=== PATIENT | male | born 1950 | race Caucasian/White ===

== ENCOUNTER 2016-12-14 11:16 | Observation (INO) | payer MEDICARE, MEDICAID ==
[~2016-12-14] VITALS: Ht 167.6 cm; Wt 81.7 kg
[~2016-12-14 11:16] MED LIST: ASPIRIN 81MG TA81 MG PO; BLOOD PRESSURE MED; CLINDAMYCIN HC300 MG PO; INDERAL20 MG PO; LIPITOR10 MG PO; LIPITOR40 MG PO; LISINOPRIL/HCTZ1 TA3 PO; MELOXICAM15 MG PO; MELOXICAM7.5 MG PO; METFORMIN HYDR500 M1 PO; MIRALAX17 GM/PACK PO; NAPROXEN SODIU500 MG PO; NITROGLYCERIN0.4 M1 SL; PRAVASTATIN 40M40 MG PO; PROPRANOLOL HCL20 M1 PO; RA SENNA PLUS1 EACH PO; SIMVASTATIN10 MG PO; TAMSULOSIN HCL0.4 MG PO; WATER PILL; ZETIA10 MG PO; ZOLPIDEM 10MG T10 MG PO; [UNRECOGNIZED DRUG - REMARK]
[2016-12-14 12:08] VITALS: BP 151/84
[2016-12-14] MEDS ORDERED: ZETIA10 MG PO (12:47)
[2016-12-14 13:12] LABS: HEMOGLOBIN 13.6 g/dL (14.1-18.0); LYMPH # 1.7 K/mm3 (0.7-4.5); LYMPH % 18.1 % (10-50)
--- NOTE | 2016-12-14 13:49 | CONSULT NOTE ---
See Addendum Standard Demographics Patient Demo Date of Consultation: 12/14/16 Referring Provider: Bradley Fernandez MD Reason for Consultation: Chest pain, palpitations, dizziness, WEBBER PRIMARY DIAGNOSIS: CHEST PAIN Problem list Problem list: 1. HTN, treated for many years 2. Strong FH of ASHD in multiple family members including father and brother in their late 50s or early 60s. 3. Hyperlipidemia 4. Reflux History of present illness: History of present illness: 66-year-old white male with known history of hypertension and strong family history of coronary artery disease presented to Dr. Fernandez's office today for further evaluation of chest discomfort, dizziness and exertional shortness of breath. Symptoms have been intermittent but progressive over the last year to 2 years. The chest discomfort and dizziness are not always associated with activity. He does note palpitations at times which he associates with the dizziness. He had a particularly symptomatic episode of chest discomfort and dizziness today which prompted the visit to Dr. Fernandez's office and subsequent admission for further evaluation. Currently patient is symptom-free. Cardiology consult for further evaluation and treatment. Patient relates a previous stress test in the last 2 years without significant abnormality. Past Medical History: General: Hypertension Yes CVA No Seizures No TB No COPD No Asthma No Diabetes No Insulin Dependent No Insulin Pump No Angina Yes HI No Hyperlipidemia Yes Urinary No Cancer No Rheumatic H.D. No Ulcers No MRSA No GB Disease No Past Surgical HX: Previous Surgery?Y LEFT KNEE CYST REMOVED FROM [facility] Allergies Coded Allergies: No Known Allergies (03/07/16) Home medications: Active Scripts Nitroglycerin 0.4 MG SL [id number] PRN chest pain #30 TAB Prov: 03/13/16 Reported Medications ASPIRIN (Aspirin) 81 MG PO DAILY Lisinopril & Hctz (Lisinopril-Hctz 10-12.5 MG Tab) 1 TABLET PO DAILY Simvastatin 5 MG PO NIGHTLY #30 Sennosides/Docusate Sodium (Ra Senna Plus Tablet) 1 EACH PO DAILY #30 Ezetimibe (Zetia) 10 MG PO DAILY Current Medications: Current Medications Metoprolol Tartrate 50 MG Q12 PO (UNV) Acetaminophen 650 MG Q4HP PRN PO Aspirin 324 MG ONCE ONE PO (DC) Morphine Sulfate 2 MG Q10M PRN IV Nicotine 21 MG DAILYP PRN TD Temazepam 15 MG QHSP PRN PO Immunization HX DT/Tetanus 1-4 Years Flu 2015-FSN Pneumonia RECEIVED IN PAST TB Test in last year No Family history Family HX Family Hx Insignificant No Diabetes No CAD Yes Hypertension Yes Hyperlipidemia Yes Cancer No TB No Social Hx: Smoking HX Are you/the child exposed to second-hand smoke: No Alcohol Alcohol: No Hx of Drug Use Drug Use? No Patien't marital status is single Patient's support system is good Review of systems: Constitutional No: no symptoms reported. Respiratory see HPI, SOB with excertion. Cardiovascular see HPI, chest pain, palpitations Gastrointestinal/Abdominal No no symptoms reported Genitourinary No: no symptoms reported. Musculoskeletal muscle pain. No: no symptoms reported. Neurological No: no symptoms reported. Exam: Admission Vital Signs: 1ST Vital Signs Result Date Time Pulse Ox 98 12/14 1208 O2 Delivery ROOM AIR 12/14 1208 Temp 98.1 12/14 1208 Pulse 65 12/14 1208 Resp 20 12/14 1208 B/P 151/84 12/14 1208 Last Vital Signs: Vital Signs Result Date Time Pulse 65 12/14 1208 B/P 151/84 12/14 1208 Temp 98.1 12/14 1208 Resp 20 12/14 1208 Pulse Ox 98 12/14 1208 O2 Delivery ROOM AIR 12/14 1208 Exam General appearance: alert, awake, no acute distress Neck: no carotid bruit, no JVD Cardiovascular: regular rate & rhythm, no murmur Respiratory: clear to auscultation, good air movement ABD: soft, no tenderness Extremities: moves all, no peripheral edema Neuro: alert, intact, oriented, speech clear Laboratory data: Laboratory Tests 12/14/16 1245: Creatine Kinase 114, CK-MB (CK-2) Rel Index 0.9, CK and CKMB Interp 1.0, Troponin I < 0.02 12/14/16 1245: Sodium 139, Potassium 3.7, Chloride 101, Carbon Dioxide 30, BUN 20 H, Creatinine 1.5 H, Estimated Creat Clear 57, Estimated GFR (MDRD) 47, Glucose 107 H, Calcium 9.4, B-Natriuretic Peptide 53, Triglycerides 119, Cholesterol 158, LDL Cholesterol 90.2, VLDL Cholesterol 23.8, HDL Cholesterol 44.0, WBC 9.2, RBC 4.47 L, Hgb 13.6 L, Hct 41.7 L, MCV 93.3, RDW 14.1, Plt Count 197, MPV 8.5, Gran % 74.3, Gran # 6.8, Lymphocytes % 18.1, Monocytes % 5.3, Eosinophils % 1.8, Basophils % 0.5, Lymphocytes # 1.7, Monocytes # 0.5, Eosinophils # 0.2, Basophils # 0.1, PUBS MCHC 32.5, MCH 30.3 Plan: Assessment: 1. Chest pain, exertional shortness of breath and dizziness with history of abnormal CT of the chest showing dense calcification of the left anterior descending. Concern for unstable angina pectoris/ASHD in a patient with significant family history of coronary disease and hypertension. We'll obtain an echocardiogram today to evaluate LV size and function. Would plan for cardiac catheterization tomorrow morning. 2. Hypertension, well controlled 3. Hyperlipidemia with LDL 158. Will increase statin therapy. Continue Zetia therapy. Recommendations: Pt seen with Dr. LAZAR. See above. at 2611
--- NOTE | 2016-12-14 14:12 | RADIOLOGY REPORT PS360 ---
CHEST(2 VIEWS-NOT PORTABLE) HISTORY: chest pain COMPARISON: Multiple previous exams including 10/26/2016 FINDINGS: The cardiomediastinal silhouette and pulmonary vascularity are within normal limits. Ill-defined increased density is present in the left lung base overlying the sixth rib anteriorly. While this may be related to summation artifact, one cannot exclude the possibility of an area of infiltrate. This did not have a similar appearance on multiple previous exams of similar technique. The remaining lungs are clear. No acute bony anomalies. IMPRESSION: Possible patchy infiltrate in the left lung base. Recommend follow up to confirm resolution as a developing nodule could have a similar appearance.
--- NOTE | 2016-12-14 15:06 | PHARMACY CLINIC NOTE ---
Patient Demographics Patient Demographics Admission date: 12/14/16 Date: 12/14/16 Time: 1506 Allergies Coded Allergies: No Known Allergies (03/07/16) HEIGHT- FT: 5 IN: 6.00 K.555 VTE General Information Labs: Laboratory Tests 12/14 1245 Hematology Hgb (14.1 - 18.0 g/dL) 13.6 L Hct (42.0 - 52.0 %) 41.7 L Plt Count (142 - 424 K/mm3) 197 Disclaimer The following section includes nursing documentation that has been pulled in for pharmacy review. Patient's VTE score: 2 Patient's VTE Risk: VERY LOW RISK Clinical trial participant? No VTE prophylaxis [facility] 0371 VTE prophylaxis ordered? Yes Type of prophylaxis/treatment: CHICO at 1504
--- NOTE | 2016-12-14 15:06 | PHARMACY CLINIC NOTE ---
Patient Demographics Patient Demographics Admission date: 12/14/16 Date: 12/14/16 Time: 1506 Allergies Coded Allergies: No Known Allergies (03/07/16) HEIGHT- FT: 5 IN: 6.00 K.555 VTE General Information Labs: Laboratory Tests 12/14 1245 Hematology Hgb (14.1 - 18.0 g/dL) 13.6 L Hct (42.0 - 52.0 %) 41.7 L Plt Count (142 - 424 K/mm3) 197 Disclaimer The following section includes nursing documentation that has been pulled in for pharmacy review. Patient's VTE score: 2 Patient's VTE Risk: VERY LOW RISK Clinical trial participant? No VTE prophylaxis [facility] 0371 VTE prophylaxis ordered? Yes Type of prophylaxis/treatment: CHICO at 1500
[2016-12-14] MEDS ORDERED: ASPIRIN 81MG TA81 MG PO (15:31)
--- NOTE | 2016-12-14 17:10 | HISTORY AND PHYSICAL REPORT ---
Demographics: Admit date: 12/14/16 Chief complaint: Chest pain PRIMARY DIAGNOSIS: CHEST PAIN Allergies: Coded Allergies: No Known Allergies (03/07/16) History of present illness: History of present illness: 66-year-old white male with known history of hypertension and strong family history of coronary artery disease presented to my office today for further evaluation of chest discomfort, dizziness and exertional shortness of breath. symptoms have been intermittent but progressive over the last year to 2 years. The chest discomfort and dizziness or not always associated with activity. He does note palpitations at times which she associates with the dizziness. He had a particularly symptomatic episode of chest discomfort and dizziness today which prompted the visit to my office and subsequent admission for further evaluation. Currently patient is symptom-free. Cardiology consult for further evaluation and treatment. Patient relates a previous stress test in the last 2 years without significant abnormality. Past medical history: Family HX Diabetes No CAD Yes Hypertension Yes Hyperlipidemia Yes Cancer No TB No Immunization HX DT/Tetanus 1-4 Years Ago Flu 2015-FSN Pneumonia Received In Past TB Test in last year No General CAD? No Angina: Yes [place]: No Hypertension? Yes Hyperlipidemia? Yes CHF? No DVT? No PE? No COPD? No Asthma? No Anemia? No GERD? No Gastric ulcers? No GI Bleed? No Hernia? No Thyroid Problems? No Hypothyroidism? No CVA? No Seizures? No Diabetes? No Insulin Dependent: No Insulin Pump: No Home FSBS? No Renal Insuffiency? No UTI? No Stones? No BPH? No GB Disease: No Nephritic Syndrome? No Asplenia? No Hepatitis? No Sickle Cell Disease? No Arthritis? No Migraines? No Cataracts? No Glaucoma? No MRSA? No HIV? No TB? No Anxiety? No Depression? No Cancer? No Past Surgical HX Previous Surgery?Y LEFT KNEE CYST REMOVED FROM [facility] Current home meds: Active Scripts Nitroglycerin 0.4 MG SL [id number] PRN chest pain #30 TAB Prov: 03/13/16 Reported Medications ASPIRIN (Aspirin) 81 MG PO DAILY Lisinopril & Hctz (Lisinopril-Hctz 10-12.5 MG Tab) 1 TABLET PO DAILY Simvastatin 5 MG PO NIGHTLY #30 Sennosides/Docusate Sodium (Ra Senna Plus Tablet) 1 EACH PO DAILY #30 Ezetimibe (Zetia) 10 MG PO DAILY Social Hx: Smoking HX Are you/the child exposed to second-hand smoke: No Alcohol Alcohol: No Hx of Drug Use Drug Use? No Patien't marital status is Patient's support system is excellent Review of systems: Constitutional No: fever, malaise, weakness. Respiratory shortness of breath. Cardiovascular chest pain, No edema, No palpitations Gastrointestinal/Abdominal No no symptoms reported Genitourinary No: no symptoms reported. Musculoskeletal No: no symptoms reported. Neurological No: see HPI. Exam: Lab data for last 24 hours: Laboratory Tests 12/14/16 1245: Creatine Kinase 114, CK-MB (CK-2) Rel Index 0.9, CK and CKMB Interp 1.0, Troponin I < 0.02 12/14/16 1245: Sodium 139, Potassium 3.7, Chloride 101, Carbon Dioxide 30, BUN 20 H, Creatinine 1.5 H, Estimated Creat Clear 57, Estimated GFR (MDRD) 47, Glucose 107 H, Calcium 9.4, B-Natriuretic Peptide 53, Triglycerides 119, Cholesterol 158, LDL Cholesterol 90.2, VLDL Cholesterol 23.8, HDL Cholesterol 44.0, WBC 9.2, RBC 4.47 L, Hgb 13.6 L, Hct 41.7 L, MCV 93.3, RDW 14.1, Plt Count 197, MPV 8.5, Gran % 74.3, Gran # 6.8, Lymphocytes % 18.1, Monocytes % 5.3, Eosinophils % 1.8, Basophils % 0.5, Lymphocytes # 1.7, Monocytes # 0.5, Eosinophils # 0.2, Basophils # 0.1, PUBS MCHC 32.5, MCH 30.3 Admission vital signs: 1ST Vital Signs Result Date Time Pulse Ox 98 12/14 1208 O2 Delivery ROOM AIR 12/14 120 Temp 98.1 12/14 120 Pulse 65 12/14 1208 Resp 20 12/14 1208 B/P 151/84 12/14 120 O2 Flow Rate 2 12/14 1235 Exam General appearance: normal appearance, alert, awake Eyes: normal exam, anicteric Neck: normal inspection, non-tender, no carotid bruit, no JVD Cardiovascular: normal exam Respiratory: normal exam, clear to auscultation ABD: normal exam, non-distended, normal bowel sounds Extremities: normal exam Musculoskeletal: normal exam Neuro: normal exam, alert, no deficit Plan: Problem List 1. Elevated systolic blood pressure reading with diagnosis of hypertension 2. Chest pain 3. Precordial chest pain Plan: Given patient's strong family history, significant anxiety, significant symptom complex we will admit to hospital, I think cardiac catheterization is warranted at 1717
[2016-12-14 17:20] VITALS: BP 151/84
[2016-12-14 20:23] VITALS: BP 104/79
[2016-12-14 23:53] VITALS: BP 113/68
[2016-12-14 23:59] VITALS: BP 113/68
[2016-12-15 04:00] VITALS: BP 95/65
[2016-12-15 08:00] VITALS: BP 113/81
[2016-12-15 09:00] VITALS: BP 113/81
--- NOTE | 2016-12-15 10:11 | ACUTE CARE PROGRESS NOTE (QUA) ---
Progress Notes Subjective Date 12/15/16 Time 0815 Note Patient rested well through the night. He reports one episode of mild left- sided chest discomfort that resolved within seconds. Currently, he feels well with no concerns or complaints. He is NPO for coronary angiogram later today. Alert and oriented x3. S1, S2. No edema. Pulses 2+. LS clear and equal. Abdomen soft and nontender. Normoactive BS. Patient/family reports: no complaints Nursing reports: no complaints Objective Findings Last VS-Temp:97.8 B/P:113/81 Pulse:58 Resp:12 SaO2:97 ROOM AIR Last weight lbs:182 oz:0 K.555 Method:Bed Scales Reviewed: medications, vital signs, lab results, radiology report Assessment/Plan Problem List 1. Elevated systolic blood pressure reading with diagnosis of hypertension Assessment/Plan: Stable through the night. No changes. 2. Chest pain Assessment/Plan: NPO for coronary angiogram later this morning. 3. Renal insufficiency Assessment/Plan: Creatinine 1.5 at baseline. Patient condition Stable Plan: continue current care This inpt stay is expected to cross 2 MNs from start of care No
--- NOTE | 2016-12-15 13:07 | RADIOLOGY REPORT PS360 ---
CARDIAC CATHETERIZATION DATE OF CATHETERIZATION:12/15/2016 12:04 PM PROCEDURES: 1. Left heart catheterization 2. Left ventriculogram 3. Selective coronary angiogram 4. Bilateral selective renal angiogram INDICATION FOR TEST: 1. Unstable angina 2. Renal failure creatinine 1.5 3. Hypertension 4. Suspect renovascular hypertension Informed consent was obtained prior to the procedure. COMPLICATIONS: None ESTIMATED BLOOD LOSS: Less than 10 ml. TECHNIQUE: One percent lidocaine used to anesthetize the right anterior aspect of the wrist. The right radial artery was accessed via the Seldinger technique. A 5 [place] sheath was placed in the right radial artery. 2.5 mg of verapamil and 800 mcg of nitroglycerin were given through the arterial sheath. The Zuleyka catheter was also used to perform selective coronary angiography involving the right coronary artery. The Zuleyka catheter was placed in the suprarenal abdominal aorta and nonselective renal angiography was performed with the Zuleyka catheter. Patient had a short descending aorta therefore the Zuleyka catheter would not cannulate the left main artery. Because I wanted to get a better view of the renal arteries I decided to proceed with right groin access. 1% lidocaine was used to anesthetize the right groin in the right femoral artery was accessed via the Seldinger technique with a 4 [place] sheath. A JL 4 JR4 catheter used to perform left heart catheterization left ventriculogram selective coronary angiography as well as bilateral selective renal angiography ANGIOGRAPHIC RESULTS: 1. The left main artery normal 2. The left anterior descending artery is a very large vessel and has a long 20 mm concentric 50-70% stenosis immediately after the first diagonal artery. The first diagonal artery is also a large 2.5 mm vessel and has an ostial 50% stenosis 3. The circumflex artery is a dominant vessel and has mild proximal tendon 20% stenosis with a long eccentric smooth 30% stenosis in the second obtuse marginal artery 4. The right coronary artery is a nondominant vessel and has proximal 20% followed by an additional concentric 40% stenosis at a 2.5 mm segment immediately adjacent to the RV marginal branch 5. The POTTER ventriculogram reveals normal ejection fraction 65% 6. The left ventricular end-diastolic pressure is 0 mmHg 7. The left renal artery is singular and normal 8. The right renal artery singular and normal IMPRESSION: 1. Angiographically indeterminate disease in a very large mid LAD which is probably hemodynamically significant based on patient's symptoms and the long nature of the stenosis 2. Moderate stenosis in the first diagonal artery 3. Mild stenosis in the large second obtuse marginal artery off the dominant circumflex artery 4. Normal ejection fraction 5. Low left ventricular end-diastolic pressure 6. Normal renal arteries PLAN: 1. I do not feel comfortable stenting the LAD based on the angiographic criteria alone. Unfortunately our FFR system is not on line today but will be available tomorrow 2. I would like to bring patient back to the [facility] [employer] tomorrow and undergo diagnostic FFR to the LAD. Based on my experience with angiography and FFR I have a high confidence interval that patient will have an ischemic response to adenosine and will probably require revascularization to the LAD. This however will have to be conformed by FFR procedure tomorrow 3. LDL less than 70. I recommend starting high-dose statin therapy along with aspirin and Effient today
[2016-12-15 16:00] VITALS: BP 151/84
[2016-12-15 20:28] VITALS: BP 132/80
[2016-12-15 22:00] VITALS: BP 125/88
[2016-12-16] VITALS (7 sets, daily range): BP systolic 103–145; BP diastolic 68–96
--- NOTE | 2016-12-16 07:36 | ACUTE CARE PROGRESS NOTE (QUA) ---
Progress Notes Subjective Date 12/16/16 Time 0732 Note 66 yo WM in NAD. Some back discomfort from being in bed. No chest pain. Complaint of frequent urination while here in hospital with history of BPH. Objective Findings Last VS-Temp:98.4 B/P:137/84 Pulse:68 Resp:16 SaO2:98 ROOM AIR Last weight lbs:180 oz:2 K.703 Method:Bed Scales Exam General appearance: alert, awake, no acute distress Cardiovascular: regular rate & rhythm Respiratory: clear to auscultation Extremities: moves all, no peripheral edema Neuro: alert, intact, oriented, speech clear Reviewed: medications, vital signs, lab results Assessment/Plan Problem List 1. Elevated systolic blood pressure reading with diagnosis of hypertension 2. Chest pain 3. Renal insufficiency Patient condition Stable Plan: return to cath laboratory technician today for diagnostic cath with FFR of moderate LAD stenosis of indeterminate significance. This inpt stay is expected to cross 2 MNs from start of care No at 3147
--- NOTE | 2016-12-16 07:36 | ACUTE CARE PROGRESS NOTE (QUA) ---
Progress Notes Subjective Date 12/16/16 Time 0732 Note 66 yo WM in NAD. Some back discomfort from being in bed. No chest pain. Complaint of frequent urination while here in hospital with history of BPH. Objective Findings Last VS-Temp:98.4 B/P:137/84 Pulse:68 Resp:16 SaO2:98 ROOM AIR Last weight lbs:180 oz:2 K.703 Method:Bed Scales Exam General appearance: alert, awake, no acute distress Cardiovascular: regular rate & rhythm Respiratory: clear to auscultation Extremities: moves all, no peripheral edema Neuro: alert, intact, oriented, speech clear Reviewed: medications, vital signs, lab results Assessment/Plan Problem List 1. Elevated systolic blood pressure reading with diagnosis of hypertension 2. Chest pain 3. Renal insufficiency Patient condition Stable Plan: return to radiographer cardiac catheterization today for diagnostic cath with FFR of moderate LAD stenosis of indeterminate significance. This inpt stay is expected to cross 2 MNs from start of care No at 0947
--- NOTE | 2016-12-16 07:42 | ACUTE CARE PROGRESS NOTE (QUA) ---
Progress Notes Subjective Date 12/16/16 Time 0739 Patient/family reports: feeling better, no complaints (but lots of urine output) Nursing reports: alert, no complaints Objective Findings Last VS-Temp:98.4 B/P:137/84 Pulse:68 Resp:16 SaO2:98 ROOM AIR Last weight lbs:180 oz:2 K.703 Method:Bed Scales Exam General appearance: normal appearance, alert Eyes: normal exam, anicteric Neck: normal inspection, non-tender Respiratory: normal exam, aerating well ABD: normal exam, non-distended, normal bowel sounds, soft Assessment/Plan Problem List 1. Elevated systolic blood pressure reading with diagnosis of hypertension 2. Chest pain 3. Renal insufficiency Patient condition Improving, Stable Plan: continue current care, FFA today This inpt stay is expected to cross 2 MNs from start of care No at 0703
--- NOTE | 2016-12-16 14:09 | RADIOLOGY REPORT PS360 ---
CARDIAC CATHETERIZATION DATE OF CATHETERIZATION:12/16/2016 11:56 AM PROCEDURES: 1. Fractional flow reserve to the LAD 2. Stent deployment to the proximal to mid LAD 3. Percutaneous transluminal angioplasty to the first diagonal artery INDICATION FOR TEST: 1. Angina pectoris class IV 2. Coronary artery disease 3. Ischemic response to adenosine Informed consent was obtained prior to the procedure. COMPLICATIONS: None ESTIMATED BLOOD LOSS: Less than 10 ml. TECHNIQUE: One percent lidocaine was used to anesthetize the right groin. The right femoral artery was accessed via the Seldinger technique. A 6 [place] sheath was placed in the right femoral artery and 9000 units of heparin was administered intravenously. Initial ACT was 316 seconds prior to the intervention. An EBU3.75 guide catheter was placed in the ascending aorta and the FFR wire was normalized. The guide catheter was placed into the left main artery and the wire was used to traverse the stenosis in the LAD. Adenosine was infused in the FFR index dropped to 0.79. Following this a 3 mm x 26 mm resolute stent was placed in the proximal mid LAD at 18 maurice reducing the stenosis to 0%. There is significant jailing of the large first diagonal artery therefore the wire was pulled back placed into the first diagonal artery and a 2.5 x 8 mm balloon was taken to 12 maurice in order to post dilate. 400 mcg of intracoronary nitroglycerin was administered and repeat angiography demonstrated wide patency of the LAD diagonal artery with NAZ-3 flow down the vessel before and after the procedure. At the end of the procedure the closing ACT was 262 ms on a Hemochron machine therefore the apparatus was removed the groin was reprepped gloves were changed sheath was removed good hemostasis was achieved using Perclose device patient was transferred to the postop holding area in stable condition IMPRESSION: 1. Angiographically indeterminate yet hemodynamically severe disease in the proximal to mid LAD 2. Successful stenting of the proximal to mid LAD hemodynamically severe disease reduced to 0% with 1 drug-eluting stent 3. Successful angioplasty of the first diagonal artery severe jailed vessel reduced to 0% with PTCA balloon PLAN: 1. Effient and aspirin 2. LDL less than 70 3. Risk factor modification
[2016-12-17 02:00] VITALS: BP 127/44
[2016-12-17 04:00] VITALS: BP 118/73
[2016-12-17 06:06] VITALS: BP 140/96
[2016-12-17 06:07] VITALS: BP 140/96
[2016-12-17] MEDS ORDERED: EFFIENT10 M2 PO (08:15)
[2016-12-17] MEDS ORDERED: METOPROLOL25 MG PO (08:18)
[2016-12-17] MEDS ORDERED: NORCO 325 MG-51 TAB PO (08:19)
[2016-12-17 08:21] VITALS: BP 113/63
--- NOTE | 2016-12-17 08:21 | ACUTE CARE PROGRESS NOTE (QUA) ---
Progress Notes Subjective Date 12/17/16 Time 0819 Patient/family reports: feeling better, no complaints Nursing reports: alert, no complaints Objective Findings Last VS-Temp:98.5 B/P:140/96 Pulse:62 Resp:13 SaO2:98 ROOM AIR Last weight lbs:180 oz:2 K.703 Method:Bed Scales Exam General appearance: normal appearance Eyes: anicteric, conjunctiva clear ENT: mucous membranes moist Neck: normal inspection, non-tender Cardiovascular: normal exam, no JVD, no ectopics, normal sinus rhythm, no murmur Respiratory: normal exam, aerating well ABD: soft, no tenderness Extremities: normal exam, right groin cath site looks good. no bruit, no bruising, minimal pain Assessment/Plan Problem List 1. Elevated systolic blood pressure reading with diagnosis of hypertension 2. Chest pain 3. Renal insufficiency Patient condition Improving Plan: initiate discharge plan This inpt stay is expected to cross 2 MNs from start of care No at 0820
--- NOTE | 2016-12-17 08:29 | DISCHARGE SUMMARY STANDARD ---
Demographics Admit date: 12/14/16 Discharge date: 12/17/16 History of present illness History of present illness 66-year-old white male with known history of hypertension and strong family history of coronary artery disease presented to Dr. Fernandez's office today for further evaluation of chest discomfort, dizziness and exertional shortness of breath. Symptoms have been intermittent but progressive over the last year to 2 years. The chest discomfort and dizziness are not always associated with activity. He does note palpitations at times which he associates with the dizziness. He had a particularly symptomatic episode of chest discomfort and dizziness today which prompted the visit to Dr. Fernandez's office and subsequent admission for further evaluation. Currently patient is symptom-free. Cardiology consult for further evaluation and treatment. Patient relates a previous stress test in the last 2 years without significant abnormality. Hospital Course Hospital Course: Patient was ruled out for DC. Given history, LHC was undertaken and revealed LAD disease - see cardiology notes... Stented yesterday with no complications. This AM is symptom free and doing well. See D.c plan for details Discharge diagnoses Problem List 1. Elevated systolic blood pressure reading with diagnosis of hypertension 2. Chest pain 3. Renal insufficiency Medications Medications: Discharge meds are as noted. Follow up Follow up in office in: 4 DAYS with: John Doran MD at 0828
[2016-12-17 09:40] VITALS: BP 113/63
[2016-12-19] MEDS ORDERED: TAMSULOSIN HCL0.4 MG PO (15:16)
[2016-12-21] MEDS ORDERED: CELEXA 20MG TAB20 MG PO (07:42)
[2016-12-21] MEDS ORDERED: IMDUR 30MG. TAB30 MG PO (07:42)
[2016-12-21] MEDS ORDERED: SIMVASTATIN10 MG PO (12:04)
[2016-12-23] MEDS ORDERED: ISORDIL 10MG. T10 MG PO (08:30)
[2016-12-23] MEDS ORDERED: ZOFRAN4 MG PO (08:30)
[2016-12-23] MEDS ORDERED: LEVAQUIN500 MG PO (11:27)
[2017-01-14] MEDS ORDERED: FLOMAX 0.4MG C0.4 MG PO (14:15)
[2017-01-14] MEDS ORDERED: ZETIA10 MG PO (14:16)
[2017-01-14] MEDS ORDERED: LISINOPRIL/HCTZ1 TA3 FT (14:17)
[2017-01-28] MEDS ORDERED: PANTOPRAZOLE SO40 MG PO (12:42)
[2017-01-28] MEDS ORDERED: VENTOLIN H0.09 MG/AC IH (18:14)
[2017-01-28] MEDS ORDERED: SIMVASTATIN10 MG PO (18:14)
[2017-01-28] MEDS ORDERED: COENZYME Q10100 MG PO (18:15)
[2017-01-28] MEDS ORDERED: VITAMIN D1000 IU PO (18:15)
== END 2016-12-17 09:40 | disposition home or self-care (01) ==
LOC: 2ND 11:16 → ICU 11:31
PROVIDERS: Internal Medicine; Internal Medicine Adolescent Medicine
PROC: B2111ZZ Fluoroscopy of Multiple Coronary Arteries using Low Osmolar Contrast (ICD-10-PCS; 2016-12-15)
PROC: B2151ZZ Fluoroscopy of Left Heart using Low Osmolar Contrast (ICD-10-PCS; 2016-12-15)
PROC: B4181ZZ Fluoroscopy of Bilateral Renal Arteries using Low Osmolar Contrast (ICD-10-PCS; 2016-12-15)
PROC: 4A023N7 Measurement of Cardiac Sampling and Pressure, Left Heart, Percutaneous Approach (ICD-10-PCS; principal; 2016-12-15 11:00)
PROC: 4A033BC Measurement of Arterial Pressure, Coronary, Percutaneous Approach (ICD-10-PCS; 2016-12-16)
PROC: 4A033BC Measurement of Arterial Pressure, Coronary, Percutaneous Approach (ICD-10-PCS; 2016-12-16)
DX: I25.110 Atherosclerotic heart disease of native coronary artery with unstable angina pectoris (principal); N19 Unspecified kidney failure; I10 Essential (primary) hypertension
CPT/HCPCS: C1725; C1760; C1769; C1876; C1894; G0378; J0153; J1644; Q9967

== ENCOUNTER 2017-03-27 11:25 | Day surgery (SDC) | payer MEDICARE, MEDICAID ==
[~2017-03-27] VITALS: Ht 167.6 cm; Wt 83.5 kg
[~2017-03-27 11:25] MED LIST changes: +CELEXA 20MG TAB20 MG PO; +COENZYME Q10100 MG PO; +EFFIENT10 M2 PO; +FLOMAX 0.4MG C0.4 MG PO; +IMDUR 30MG. TAB30 MG PO; +ISORDIL 10MG. T10 MG PO; +LEVAQUIN500 MG PO; +LISINOPRIL/HCTZ1 TA3 FT; +METOPROLOL25 MG PO; +NORCO 325 MG-51 TAB PO; +PANTOPRAZOLE SO40 MG PO; +VENTOLIN H0.09 MG/AC IH; +VITAMIN D1000 IU PO; +ZOFRAN4 MG PO
--- NOTE | 2017-03-27 13:09 | Operative Note ---
Upper GI Endoscopy Procedure date: 03/27/17 Date of : 52 Procedure:Upper GI Endoscopy Esophagogastroduodenoscopy with cold biopsies Indications: Mr. Kaiser is a 66-year-old gentleman who has had some dyspepsia with midepigastric and some lower retrosternal discomfort. He also states that he feels a smothering or difficulty getting a deep breath. He has had moderate bloating and some early satiety. He also has chronic constipation for which he takes MiraLAX 34 g twice a day plus Metamucil. He still feels as if this does not help him evacuate and he states that it causes more bloating. The patient reports no belching, nausea, heartburn or dysphagia. His barium swallow showed a very small sliding hiatal hernia. He did see Dr. John Doran and had cardiac evaluation. Performing Provider: Yaron Askew MD Referring Provider: Bradley Fernandez M.D./John Doran M.D. Sedation: MAC sedation Procedure: Prior to the procedure, a history and physical exam was performed, and patients medications and allergies were reviewed. The risks and benefits of the procedure and the sedation options and risks were discussed with the patient. All questions were answered and informed consent was obtained. The patient was brought to the procedure room. Patient identification and proposed procedure were verified by the physician and the nurse. The patient was placed in a left lateral decubitus position and the scope was passed under direct vision. Throughout the procedure, the patient's blood pressure, pulse, and oxygen saturations were monitored continuously. The endoscope was introduced through the mouth, and advanced to the second part of duodenum. The upper GI endoscopy was accomplished without difficulty. The patient tolerated the procedure well. Findings: The scope was passed directly into the upper esophagus and advanced to the third portion of the duodenum. The post bulbar duodenum and duodenal bulb were normal with normal mucosa and conniventes. The scope was withdrawn through a normal duodenal bulb and pylorus into the stomach. There was some linear erythema of the antrum and body consistent with linear reactive gastritis. The remainder of the antrum, body and fundus of the stomach were grossly normal. Upon retroflexion there was no hiatal hernia. 2 biopsies were taken in the antrum and along the lesser curvature for histology and/or CLOtest. The scope was then withdrawn into the esophagus. There was no evidence of reflux esophagitis or Hoffman's. There were tertiary contractions and mild esophageal dysmotility. The remainder of the esophageal mucosa was normal. Immediate complications: None EBL (ml): 0 Impression: 1. Nonerosive gastroesophageal reflux disease with mild esophageal dysmotility/ esophageal dyskinesia 2. Mild linear reactive gastritis Recommendations: I do feel that the patient has functional dyspepsia with some esophageal dyskinesia resulting in his recent symptoms. I do feel that he has obstipation related symptoms as well. We will discuss additional treatment options which may include promotility therapy and sennaprompt. I will follow-up the biopsies. at 1308
--- NOTE | 2017-03-27 13:13 | Anesthesia Record ---
Anesthesia Record Part II Discharge time: 1307 Destination: Same day surgery PACU nurse assessment review? Yes (sds) Patient is: Awake, Stable Anesthesia complications? No at 1314
--- NOTE | 2017-03-27 13:13 | Anesthesia Record ---
Anesthesia Record Part I Total IV fluids: 300 EBL (ml): 0 Urine Output: 0 B/P: 119/80 % SaO2: 97 Pulse: 60 Resps: 16 Temp: 97.6 Patient is: Awake, Stable Stable to PACU at: 1307 (sds) at 1313
[2017-03-27 14:45] VITALS: BP 135/83
[2017-04-01] MEDS ORDERED: CYTOTEC 200MC200 MC1 PO (13:09)
[2017-04-01] MEDS ORDERED: METOCLOPRAMIDE H5 MG PO (13:10)
[2017-04-01] MEDS ORDERED: PRILOSEC OTC20 MG PO (13:11)
== END 2017-03-27 14:00 | disposition home or self-care (01) ==
LOC: SDC 11:25
PROVIDERS: Internal Medicine Gastroenterology
PROC: 0DB78ZX Excision of Stomach, Pylorus, Via Natural or Artificial Opening Endoscopic, Diagnostic (ICD-10-PCS; principal; 2017-03-27 13:30)
DX: R14.0 Abdominal distension (gaseous) (principal); K30 Functional dyspepsia; K21.9 Gastro-esophageal reflux disease without esophagitis; K22.4 Dyskinesia of esophagus; K29.70 Gastritis, unspecified, without bleeding; K59.00 Constipation, unspecified

== ENCOUNTER → 2017-07-10 | Outpatient (CLI) | payer MEDICARE, MEDICAID ==
[~2017-07-10] MED LIST changes: +ATIVAN GENERIC0.5 MG PO; +ATIVAN0.5 MG PO; +CLOPIDOGREL75 MG PO; +CYTOTEC 200MC200 MC1 PO; +ESCITALOPRAM10 M1 PO; +FAMOTIDINE 20MG20 MG PO; +FISH OIL1000 MG PO; +HYDROCHLOROTH12.5 M2 PO; +HYDROXYZINE HCL25 M1 PO; +LISINOPRIL 5MG T5 MG PO; +METOCLOPRAMIDE H5 MG PO; +PRILOSEC OTC20 MG PO; +RANEXA500 M1 PO; +TRIAMCINOL15 GM/TUBE TP
--- NOTE | 2017-07-10 14:08 | RADIOLOGY REPORT PS360 ---
History and Indications: Coronary artery disease, hypertension, hyperlipidemia, chest pain suggestive of angina, and shortness of breath. Procedure: Patient received 0.4 mg of Lexiscan, stinging heart rate was 52 bpm, resting blood pressure 130/88, with Lexiscan maximum heart rate achieved was 109 bpm which is less than 85% of the maximum predicted heart rate and a blood pressure was 114/71. With Lexiscan patient complained of shortness of breath and stomach discomfort. Electrocardiogram: Resting electrocardiogram showed sinus bradycardia, with Lexiscan there is less than 1.5 ST segment depression noted from the baseline EKG. The EKG portion of the Lexiscan Myoview is nondiagnostic. Cardiac stress and resting SPECT images: Cardiac stress and resting SPECT images were obtained using technetium 99 Myoview 10.6 mCi at rest and 32.0 mCi at stress, gated SPECT further analysis of segmental wall motion and calculation of ejection fraction also done. Cardiac stress and rest SPECT images show uniform myocardial activity without any segmental perfusion abnormality, computer derived ejection fraction is 62% with no obvious regional wall motion abnormality, right ventricle is normal size and contractility. Conclusion: 1. The EKG portion of the Lexiscan Myoview is nondiagnostic. 2. No obvious scintigraphic evidence of reversible ischemia seen, computer derived ejection fraction is 62% with no obvious regional wall motion abnormality, right ventricle is normal size and contractility. 3. Normal Lexiscan Myoview study.
--- NOTE | 2017-07-10 17:00 | RADIOLOGY REPORT PS360 ---
PROCEDURE: 2-D M-mode and color Doppler study INDICATIONS FOR THE TEST: Chest pain COPD Heart Murmur Tobacco Smoking Palpitations Fatigue+ Syncope Edema Hypertension+Diabetes Mellitus Rheumatic Fever SOB+WEBBER Obesity Hyperlipidemia+ Family History HD Additional History STENT 2015 PATIENT INFORMATION HEIGHT:66 WEIGHT:180 GENDER: Male B/P:130/88 2-D/M-MODE INTERPRETATION: 2-D MEASUREMENTS OBSERVED VALUES IN CMS Right Ventricular Dimension (RVDd) 2.3 Interventricular Septum (Thickness)(IVsd) 1.4 Left Ventricular Internal Dimensions(LVIDd) 4.6 Left Ventricular Posterior Wall (Thickness)(LVPWd) 0.8 Aortic Root 3.1 Aortic Cusp Separation 2.0 Left Atrial Dimensions (LAD) 3.7 2D 1. Left atrium is qualitatively mildly enlarged, left ventricle is normal size, there is mild qualitative concentric left ventricular hypertrophy present, visually estimated ejection fraction 55% with no obvious regional wall motion abnormality. 2. The right atrium and right ventricle are relatively normal size and function. 3. The aortic valve is minimally thickened and fibrosed. 4. The mitral and tricuspid valve leaflets are grossly normal. 5. The pulmonic valve is poorly visualized. 6. No significant pericardial effusion noted. DOPPLER INTERROGATION: Doppler interrogation of the aortic mitral and tricuspid valvular presence of mild mitral and tricuspid regurgitation, tricuspid and enteric velocity insufficient for calculation of the right ventricular systolic pressure, grade 1 diastolic dysfunction seen without tissue Doppler evidence of raised left atrial pressure. CONCLUSION: 1. Mildly enlarged left atrium, normal left ventricular size, mild concentric left ventricular hypertrophy, visually estimated ejection fraction 55% with no obvious regional wall motion abnormality, grade 1 diastolic dysfunction seen without tissue Doppler evidence of raised left atrial pressure. 2. Mild mitral and tricuspid regurgitation. 3. No significant pericardial effusion noted.
== END ==
LOC: RAD 07:30
DX: R07.9 Chest pain, unspecified (principal); R06.00 Dyspnea, unspecified; R07.89 Other chest pain; I25.110 Atherosclerotic heart disease of native coronary artery with unstable angina pectoris; I10 Essential (primary) hypertension; I20.0 Unstable angina; K21.9 Gastro-esophageal reflux disease without esophagitis; K44.9 Diaphragmatic hernia without obstruction or gangrene
CPT/HCPCS: A9502; J2785

== ENCOUNTER → 2017-09-05 | Outpatient (CLI) | payer MEDICARE, MEDICAID ==
[2017-09-05 19:37] LABS: AMPHETAMINES/METAMPHETAMINES NEGATIVE ng/mL (<1000)
[2017-09-13 16:37] LABS: Alprazolam Negative (Cutoff=100); Benzodiazepines Positive ng/mL (Cutoff=100); Clonazepam Negative (Cutoff=100); Flurazepam Negative (Cutoff=100); Lorazepam Positive (.); Midazolam Negative (Cutoff=100); Temazepam Negative (Cutoff=100); Triazolam Negative (Cutoff=100)
== END ==
LOC: LAB 18:18
PROVIDERS: Nurse Practitioner Family
DX: Z79.899 Other long term (current) drug therapy (principal)
CPT/HCPCS: G0480

== ENCOUNTER → 2017-10-02 | Outpatient (CLI) | payer MEDICARE, MEDICAID ==
[2017-10-02 22:07] LABS: AMPHETAMINES/METAMPHETAMINES NEGATIVE ng/mL (<1000)
== END ==
LOC: LAB 18:29
PROVIDERS: Nurse Practitioner Family
DX: Z02.83 Encounter for blood-alcohol and blood-drug test (principal); Z79.899 Other long term (current) drug therapy
CPT/HCPCS: G0480

== ENCOUNTER → 2017-10-06 | Outpatient (CLI) | payer MEDICARE, MEDICAID ==
[2017-10-06 08:18] LABS: HEMOGLOBIN 14.6 g/dL (14.1-18.0); LYMPH # 1.8 K/mm3 (0.7-4.5); LYMPH % 23.6 % (10-50)
[2017-10-06 09:18] LABS: BUN 25 mg/dL (7-18)
[2017-10-06 09:22] LABS: GFR (ESTIMATED) 51 ML/MIN (>60)
[2017-10-07 08:39] LABS: Iron 167 ug/dL (38-169); Iron Saturation 47 % (15-55); UIBC 185 ug/dL (111-343)
== END ==
LOC: RT 07:45
PROVIDERS: Internal Medicine
DX: R00.2 Palpitations (principal); R07.9 Chest pain, unspecified; I25.10 Atherosclerotic heart disease of native coronary artery without angina pectoris; I10 Essential (primary) hypertension

== ENCOUNTER → 2017-11-07 | Outpatient (CLI) | payer MEDICARE, MEDICAID ==
[2017-11-07 20:12] LABS: AMPHETAMINES/METAMPHETAMINES NEGATIVE ng/mL (<1000)
[2017-11-17 08:40] LABS: Alprazolam Negative (Cutoff=100); Benzodiazepines Positive ng/mL (Cutoff=100); Clonazepam Negative (Cutoff=100); Flurazepam Negative (Cutoff=100); Lorazepam Positive (.); Midazolam Negative (Cutoff=100); Temazepam Negative (Cutoff=100); Triazolam Negative (Cutoff=100)
== END ==
LOC: LAB 18:15
PROVIDERS: Nurse Practitioner Family
DX: Z79.899 Other long term (current) drug therapy (principal); F41.9 Anxiety disorder, unspecified
CPT/HCPCS: G0480